=== PATIENT | female | born 1965 | race African-American/Black ===

== ENCOUNTER 2018-09-15 09:20 | Emergency (ER) | payer SELFPAY ==
[~2018-09-15] VITALS: Ht 167.6 cm; Wt 95.3 kg
[~2018-09-15 09:20] MED LIST: AMOX500C PO; FLUT9.9S NS; GUAI473L15 PO; IBUP-1007 PO; METO10TA81 PO
[2018-09-15 09:34] VITALS: BP 160/102
[2018-09-15] MEDS ORDERED: PROPARACAINE 0.5% OPHTH SOLUTION 15ML BOTTLE. OD ONE (09:45)
--- NOTE | 2018-09-15 09:48 | PHYS DOC ---
Past Medical History Past Medical History: Hypertension Past Surgical History: Hysterectomy Alcohol Use: Occasionally Drug Use: Marijuana Adult General Chief Complaint Chief Complaint: EYE PROBLEMS HPI HPI Patient is a 53 year old female presents to the ED complaining of right upper eyelid swelling x 1 week. States that she started to have right upper eyelid swelling one week ago. States that she is not sure what is causing it. Denies new make up, soaps, lotions or detergents. Patient wears glasses but does not wear glasses. Denies fever, vision changes, diplopia, nausea/vomiting, injury, headache, erythema, warmth, eye pain, chest pain, shortness of breath. Review of Systems Review of Systems Constitutional: Denies fever or chills [] Eyes: Denies change in visual acuity, redness, or eye pain [] HENT: Denies nasal congestion or sore throat [] Respiratory: Denies cough or shortness of breath [] Cardiovascular: No additional information not addressed in HPI [] GI: Denies abdominal pain, nausea, vomiting, bloody stools or diarrhea [] : Denies dysuria or hematuria [] Musculoskeletal: Denies back pain or joint pain [] Integument: Denies rash or skin lesions [] Neurologic: Denies headache, focal weakness or sensory changes [] All other systems were reviewed and found to be within normal limits, except as documented in this note. Current Medications Current Medications Current Medications Medications (Trade) Dose Ordered Sig/[facility] Start Time Stop Time Status Last Admin Dose Admin Proparacaine HCl (Alcaine) 1 drop 1X ONCE 09/15/18 09:45 09/15/18 09:46 DC 09/15/18 09:52 1 DROP Allergies Allergies Allergies Coded Allergies Type Severity Reaction Last Updated Verified No Known Drug Allergies 12/09/15 No Physical Exam Physical Exam Constitutional: Well developed, well nourished, no acute distress, non-toxic appearance. [] HENT: Normocephalic, atraumatic, bilateral external ears normal, oropharynx moist, no oral exudates, nose normal. [] Eyes: PERRLA, EOMI, conjunctiva normal, no discharge. Visual acuity WNL, Normal IOP. mild right upper eyelid swelling. no erythema, warmth, drainage or periorbital cellulitis. [] Neck: Normal range of motion, no tenderness, supple, no stridor. [] Cardiovascular:Heart rate regular rhythm, no murmur [] Lungs & Thorax: Bilateral breath sounds clear to auscultation [] Skin: Warm, dry, no erythema, no rash. [] Neurologic: Alert and oriented X 3, normal motor function, normal sensory function, no focal deficits noted. [] Psychologic: Affect normal, judgement normal, mood normal. [] Current Patient Data Vital Signs Vital Signs Date Time Temp Pulse Resp B/P (MAP) Pulse Ox O2 Delivery O2 Flow Rate FiO2 09/15/18 09:34 98.2 83 20 160/102 (121) 98 Room Air 98.2 EKG EKG [] Radiology/Procedures Radiology/Procedures [] Course & Med Decision Making Course & Med Decision Making Pertinent Labs and Imaging studies reviewed. (See chart for details) []Visual acuity WNL, Normal IOP (12-15 range). Patient well appearing. No FB sensation. Discussed symptomatic treatment and follow-up with opthalmology tomorrow. Provided contact information/education. Patient states she is going to go to the eye office after leaving here. Discussed reasons to return to the ED. Patient understands and agrees with plan. Discussed case with attending physician, Dr. Davis. Agrees with evaluation and plan. Dragon Disclaimer Dragon Disclaimer This electronic medical record was generated, in whole or in part, using a voice recognition dictation system. Departure Departure Impression: Primary Impression: Swelling of right eyelid Disposition: HOME, SELF-CARE Condition: IMPROVED Referrals: NO PCP (PCP) MARTIR FU MD Patient Instructions: Eyedrops KATIE QUEZADA Sep 15, 2018 09:48
== END 2018-09-15 10:15 | disposition home or self-care (01) ==
LOC: ER 09:20
DX: H02.841 Edema of right upper eyelid (principal); I10 Essential (primary) hypertension
CPT/HCPCS: 99282

== ENCOUNTER 2019-04-06 17:29 | Emergency (ER) | payer BC ==
[~2019-04-06] VITALS: Ht 167.6 cm; Wt 99.8 kg
[~2019-04-06 17:29] MED LIST changes: +ALPR2TAB2 PO; +APIX5TAB PO; +DILT120C99 PO; +METH-364 PO; +PROP40TA PO
[2019-04-06 18:09] VITALS: BP 169/103
[2019-04-06] MEDS ORDERED: HYDR-3164 PO (18:26)
--- NOTE | 2019-04-06 19:14 | RAD ---
Exam: Right knee 3 views INDICATION: Check hardware TECHNIQUE: Frontal, lateral and oblique views of the right knee Comparisons: None FINDINGS: Partial visualization of the ORIF hardware at the distal right femur with lateral fixation plate, numerous transfixing screws and anterior grade intramedullary fabiano. No acute fractures identified. Soft tissues are unremarkable. Joint spaces are well-maintained. IMPRESSION: Partial visualization of right femur ORIF. No acute fractures seen. Electronically signed by: Liyah George MD (04/06/2019 7:11 PM) [facility]
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
== END 2019-04-06 19:01 | disposition home or self-care (01) ==
LOC: ER 17:29
DX: M25.561 Pain in right knee (principal); I10 Essential (primary) hypertension; G89.29 Other chronic pain; E05.00 Thyrotoxicosis with diffuse goiter without thyrotoxic crisis or storm; F12.90 Cannabis use, unspecified, uncomplicated
CPT/HCPCS: 73562; 99284